=== PATIENT | female | born 1945 | race Caucasian/White ===

== ENCOUNTER 2023-02-14 09:27 | Emergency (ER) | payer MEDICARE, OTHER ==
[2023-02-14 09:56] VITALS: BP 144/66
--- NOTE | 2023-02-14 10:03 | XRAY Report ---
PROCEDURE: Wrist 3 View LT INDICATIONS: injury/pain TECHNIQUE: 3 views of the wrist were acquired. COMPARISON: None. FINDINGS: Bones: No fracture or dislocation. The bones are demineralized. Postoperative changes of resection o f the trapezium. Degenerative changes of the distal scaphoid. Chondrocalcinosis in the triangular fib rocartilage. Soft tissues: No suspicious soft tissue calcifications or masses. IMPRESSION: 1. No acute traumatic abnormality. 2. Postoperative changes of trapezium resection. 3. Chondrocalcinosis Reviewed by: Sorin Mcgill on 02/14/2023 9:01 AM JOSE Approved by: Sorin Mcgill on 02/14/2023 9:01 AM JOSE Station ID: [id number]
--- NOTE | 2023-02-14 10:40 | ED Physician Documentation ---
PD HPI UPPER EXT INJURY - Stated complaint Stated Complaint: LT WRIST INJ - Chief complaint Chief Complaint: Trauma Ext - History obtained from History obtained from: Patient - Additonal information Additional information: The pt comes to the ED for CC of L wrist pain and swelling after working in her garden yesterday. No distinct injury. History of diffuse osteoarthritis. PD PAST MEDICAL HISTORY - Past Medical History Endocrine/Autoimmune: HyPOthyroidism Musculoskeletal: Osteoarthritis, Fibromyalgia - Past Surgical History Past Surgical History: Yes General: Cholecystectomy - Present Medications Home Medications: Ambulatory Orders Medication Instructions Recorded Confirmed Levothyroxine [Synthroid] 03/15/14 03/15/14 Simvastatin 03/15/14 03/15/14 - Allergies Allergies/Adverse Reactions: Allergies Allergy/AdvReac Type Severity Reaction Status Date / Time morphine Allergy Unknown Verified 03/15/14 20:57 - Social History Does the pt smoke?: No Smoking Status: Never smoker Does the pt drink ETOH?: No - Immunizations Immunizations are current?: Yes - POLST Patient has POLST: No PD ED PE NORMAL - Vitals Vital signs reviewed: Yes - General General: Alert and oriented X 3, No acute distress, Well developed/nourished - HEENT HEENT: Atraumatic, PERRL, EOMI, Moist mucous membranes - Neck Neck: Supple, no meningeal sign - Cardiac Cardiac: Strong equal pulses - Respiratory Respiratory: No respiratory distress - Derm Derm: Normal color, Warm and dry, No rash - Extremities Extremities: Other (MIld, chronic-appearing deformity of BUE c/w arthritis. Mild edema, moderate tenderness and limited ROM L wrist.) - Neuro Neuro: Alert and oriented X 3 - Psych Psych: Normal mood, Normal affect Results - Vitals Vitals: Oxygen O2 Source Room air - Rads (name of study) L wrist XR series Relevant Findings:: Final report received (NAD) PD Medical Decision Making - ED course Complexity details: reviewed results, re-evaluated patient, considered differential, d/w patient ED course: X-rays were unremarkable. I discussed symptomatic management with the pt, as w ell as the usual indications for return. Departure - Departure Disposition: 01 Home, Self Care Clinical Impression: Wrist pain Qualifiers: Laterality: left Qualified Code(s): M25.532 - Pain in left wrist Osteoarthritis Qualifiers: Osteoarthritis location: wrist Osteoarthritis type: unspecified Laterality: left Qualified Code(s): M19.032 - Primary osteoarthritis, left wrist Condition: Stable Instructions: Osteoarthritis Living Comments: You have not had any injury to indicate risk of either a sprain or fracture. Your x-ray shows some degeneration in your bones but otherwise is unremarkable. You will need to take it easy on your wrist to avoid making the inflammation and flareup worse. You have been offered a steroid taper for alleviation of inflammation but have declined this at this time. You may take your home tramadol as needed. Please follow-up with your primary care physician as needed. Discharge Date/Time: 02/14/23 10:45
== END 2023-02-14 10:45 | disposition home or self-care (01) ==
LOC: ED 09:27
DX: M19.032 Primary osteoarthritis, left wrist (principal); E03.9 Hypothyroidism, unspecified; Z79.899 Other long term (current) drug therapy
CPT/HCPCS: 99283

== ENCOUNTER 2023-09-17 13:07 | Outpatient (CLI) | payer MEDICARE ==
--- NOTE | 2023-09-18 09:59 | XRAY Report ---
PROCEDURE: Shoulder 2+V LT INDICATIONS: LEFT SHOULDER STRAIN TECHNIQUE: 3 views of the shoulder were acquired. COMPARISON: None. FINDINGS: Bones: No fractures or dislocations. No suspicious bony lesions. Moderate osteoarthritic changes in acromioclavicular and glenohumeral joint. Visualized ribs appear intact. Soft tissues: There are calcifications over the humeral head, consistent with rotator cuff calcific tendinitis. The visualized lungs are within normal limits. IMPRESSION: 1. Moderate osteoarthritic. 2. Rotator cuff calcific tendinitis. Reviewed by: Nikkie Pardo MD on 09/18/2023 9:58 AM PST Approved by: Nikkie Pardo MD on 09/18/2023 9:58 AM PST Station ID: [id number]
== END 2023-09-17 13:08 | disposition home or self-care (01) ==
LOC: DI 13:07
PROVIDERS: ATTEND Physician Assistant Medical
DX: M19.012 Primary osteoarthritis, left shoulder (principal); M75.32 Calcific tendinitis of left shoulder